=== PATIENT | male | born 1985 | race Caucasian/White ===

== ENCOUNTER 2019-11-06 10:48 | Emergency (ER) | payer OTHER, SELFPAY ==
[2019-11-06 11:09] VITALS: BP 119/75; PULSE 83; RESP 20; TEMP 36.9; O2SAT 98
--- NOTE | 2019-11-06 11:24 | ECG_ITS ---
Measurements Intervals Reyno Rate: 72 P: 43 MS: 160 QRS: 60 QRSD: 101 T: 42 QT: 343 QTc: 376 Interpretive Statements SINUS RHYTHM INCOMPLETE RIGHT BUNDLE BRANCH BLOCK CONSIDER TYPE 3 BRUGADA PATTERN ABNORMAL ECG Electronically Signed On 11-06-2019 11:40:26 TEA TASTER by Johnnie Huang D.O.
--- NOTE | 2019-11-06 11:40 | ED.GENADULT ---
HPI - General Adult General Chief complaint: Chest Pain Stated complaint: tightness in chest Time Seen by Provider: 11/06/19 11:40 Source: patient and RN notes reviewed Mode of arrival: ambulatory Limitations: no limitations History of Present Illness HPI narrative: 34-year-old male presents with complaints of chronic intermittent chest pain (intermittent pressure), palpitation, RT rib pain, lightheadedness, dizziness, and a syncopal episode this time for 4 days. Currently symptom free. No treatment. Justo says he has been having intermittent chest pain (intermittent pressure) and RT rib pain for years, since he was 18 years old. Symptoms increasing over the past year. Has been evaluated on numerous occasions at local ED for similar symptoms, evaluation included blood work, EKG, CXR, holter Monitor (negative, had to wear it twice, initial results not clear per Justo, repeated per his MD at the time.), stress test (negative per patient), last approximately 4-5 years ago. Exacerbating factors is smoke exposure (smokes 0.5PPD), laying down and tossing from side to side, and prolong standing increases and intensify the pain. Justo denies family history of sudden . Denies routine medications and drug usage, uses alcohol beverages every other weekend. Says maternal and paternal uncles has cardiac history, one paternal uncle of a AL at age 43. Justo says he had a unwitnessed syncopal episode on 11/02/2019 (he remembers going out and coming to while a show he was watching on television had went off). Denies dyspnea, diaphoresis, fever, or chills. Complains of intermittent nausea without vomiting, diarrhea, or abdominal pain. Denies leg cramping, leg swelling, long car rides, history of DVT, PE, or LE edema. Remains active and tolerating po intake well. Some parts of this dictation were generated by voice recognition software and may contain typographical and/or grammatical inaccuracies. Related Data Home Medications Medication Instructions Recorded Confirmed No Home Medications 11/06/19 11/06/19 Allergies Allergy/AdvReac Type Severity Reaction Status Date / Time No Known Allergies Allergy Verified 11/06/19 11:35 Review of Systems Review of Systems: Narrative: CONSTITUTIONAL: Denies fever, chills, sweats. EYES: Denies visual changes, redness, discharge. ENT: Denies rhinorrhea, congestion, sore throat, otalgia. CARDIOVASCULAR: Complains of intermittent chest pain. Denies palpitations, edema. RESPIRATORY: Denies dyspnea, wheezing, cough. GASTROINTESTINAL: Denies abdominal pain, vomiting, diarrhea. Complains of nausea. GENITOURINARY: Denies dysuria, hematuria, abnormal discharge. SKIN: Denies rash or itching. MUSCULOSKELETAL: Denies acute back pain or myalgia. Complains of intermittent RT anterior rib pain. NEUROLOGIC: Denies numbness or focal weakness. Complains of intermittent syncopal episodes, dizziness, lightheadedness. PSYCHIATRIC: Denies anxiety or depression. All systems reviewed & are unremarkable except as noted in HPI and below PMFSH Past Medical History Medical History (Updated 11/08/19 @ 00:05 by JULIANE Lawton) Chest pain Near syncope Surgical History Surgical History (Updated 11/08/19 @ 00:04 by JULIANE Lawton) History of tonsillectomy Social History Social History (Updated 11/08/19 @ 00:06 by JULIANE Lawton) Smoking status: Current every day smoker Comments At time of signature, agree with nurse past medical, surgical, social, and family history. There is no relevant family history pertinent to the presenting complaint. Exam Narrative: Exam Narrative: GENERAL: This is a well-nourished, well-developed patient, in no apparent distress. Talks in full sentences without deficits and ambulates with steady gait without dyspnea. HEAD: normocephalic, atraumatic. EYES: PERRL. Sclera clear/white. Vision is grossly intact. NOSE: External nose normal
[2019-11-06 12:24] VITALS: BP 118/76; PULSE 65
[2019-11-06 12:25] VITALS: BP 111/79; BP 114/76; PULSE 81; PULSE 90
[2019-11-06 12:37] LABS: Glucose Point of Care 103 (65-105)
== END 2019-11-06 13:02 | disposition home or self-care (01) ==
PROVIDERS: Emergency Provider Nurse Practitioner Family
DX: R07.89 Other chest pain (principal); R55 Syncope and collapse; F17.200 Nicotine dependence, unspecified, uncomplicated; I45.10 Unspecified right bundle-branch block; R94.31 Abnormal electrocardiogram [ECG] [EKG]
CPT/HCPCS: 82948; 93005; 99213; G0463

== ENCOUNTER 2020-10-14 11:15 | Emergency (ER) | payer BC, SELFPAY ==
--- NOTE | 2020-10-14 11:20 | ED.BACK ---
HPI - Back Pain/Injury General Chief Complaint: Back Pain/Injury Stated Complaint: back pain Time Seen by Provider: 10/14/20 12:02 Source: patient and RN notes reviewed Mode of arrival: ambulatory Limitations: no limitations History of Present Illness HPI Narrative: 45-year-old male presents concern for right mid back pain. Reports 5-day history of back pain, denies any injury, trauma, fall. 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 Reports exacerbating factors are bending, twisting, getting out of bed, reports relieving factors are not moving. He denies any intervention. He denies loss of bowel or bladder function, abdominal pain, fever, weakness in any extremity, perianal anesthesia. MD elicited complaint: back pain Related Data Allergies Allergy/AdvReac Type Severity Reaction Status Date / Time No Known Allergies Allergy Verified 11/06/19 11:35 Review of Systems Review of Systems: Narrative: CONSTITUTIONAL: Denies malaise, chills, sweats, or fever. CARDIOVASCULAR: Denies chest pain, palpitations, or edema. RESPIRATORY: Denies cough or dyspnea. GASTROINTESTINAL: Denies abdominal pain, nausea, vomiting, diarrhea, bloody, or mucous stools. GENITOURINARY: Denies dysuria or hematuria. SKIN: Denies bruising, redness MUSCULOSKELETAL: Reports mid right back pain. Denies joint pain, or myalgia. NEUROLOGIC: Denies numbness, weakness, or headache. All systems reviewed & are unremarkable except as noted in HPI and below PMFSH Past Medical History Medical History (Updated 10/14/20 @ 12:08 by Shanell Ansari NP) Chest pain Near syncope Surgical History Surgical History (Updated 11/08/19 @ 00:04 by JULIANE Lawton) History of tonsillectomy Social History Social History (Updated 11/08/19 @ 00:06 by JULIANE Lawton) Smoking status: Current every day smoker Comments At time of signature, agree with nursing past medical, surgical, social and family history. There is no relevant family history pertinent to the presenting complaint Exam Narrative: Exam Narrative: GENERAL: Well-appearing, well-nourished, and in no acute distress. HEAD: Normocephalic, atraumatic. EYES: PERRLA and EOMI. NECK: Supple. No lymphadenopathy. CHEST: Clear to auscultation. No respiratory distress. HEART: Regular rate and rhythm. Distal pulses palpable and equal, cap refill <3 seconds ABDOMEN: Soft, nontender, nondistended, normal active bowel sounds, no palpable or pulsatile masses. No CVA tenderness MUSCULOSKELETAL: Normal range of motion and strength in all extremities; 5/5 strength with hip flexion and extension, dorsiflexion and extension, knee flexion and extension, plantar flexion and extension. Normal sensation in dermatomal distributions with sensitivity to light touch and pain. No midline back tenderness to palpation. No paraspinal tenderness. Transfers from lying to sitting to standing. SKIN: Warm, dry, no rash. No ecchymosis, erythema, open wounds to back. NEURO: No focal deficits. Alert and oriented x3. Reflexes intact. Normal gait. PSYCH: Normal mood and affect Course Course Emergency Course: Patient is aware of diagnosis, understands and agrees to treatment plan. Anticipatory guidance given. Patient agrees to follow-up as directed and is aware of reasons to seek care at the emergency department. Portions of this record may have been created with voice recognition software Vital Signs Vital signs: Vital Signs Temperature 99.3 F 10/14/20 11:25 Pulse Rate 96 10/14/20 11:25 Respiratory Rate 18 10/14/20 11:25 Blood Pressure 142/84 H 10/14/20 11:25 Pulse Oximetry 97 10/14/20 11:25 Temperature 99.3 F 10/14/20 11:25 Pulse Rate 96 10/14/20 11:25 Respiratory Rate 18 10/14/20 11:25 Blood Pressure 142/84 H 10/14/20 11:25 Pulse Oximetry 97 10/14/20 11:25 Reviewed. MDM - Back Pain/Injury MDM Narrative Medical decision making narrative: No risk factors or findings concerning
[2020-10-14 11:25] VITALS: BP 142/84; PULSE 96; RESP 18; TEMP 37.4; O2SAT 97
== END 2020-10-14 12:14 | disposition home or self-care (01) ==
PROVIDERS: Emergency Provider Nurse Practitioner
DX: M54.6 Pain in thoracic spine (principal)
CPT/HCPCS: 99213; G0463

== ENCOUNTER 2021-05-15 10:19 | Emergency (ER) | payer OTHER, BC, SELFPAY ==
[2021-05-15 10:29] VITALS: BP 124/77; PULSE 93; RESP 18; TEMP 37.1; O2SAT 98
--- NOTE | 2021-05-15 10:54 | ED.GENADULT ---
HPI - General Adult General Chief complaint: Head Injury Stated complaint: head injury Time Seen by Provider: 05/15/21 10:41 Source: patient and RN notes reviewed Mode of arrival: ambulatory Limitations: no limitations History of Present Illness HPI narrative: 35-year-old male presents with complaints of intermittent dizziness, blurred vision, and headaches (not the worst of his life) after hitting head on a steel beam at work for the past 3 days. Justo reports hitting LT side of head on a steel beam Wednesday05/12/2021 and on Wednesday05/13/2021 he started having intermittent dizziness, blurred vision, and headaches, he called off work today and they instructed him to seek medical care. Justo reports he lifted up hitting head on the beam. ?No treatment. ?No loss of consciousness, double vision, or seizure activity. ?Denies nausea and vomiting. ?Tolerating po intake well. ?Denies immobility. Denies pain, numbness or tingling, or weakness of upper or lower extremities. ?No foreign body sensation. ?Exacerbation consists of light going from dark areas into lighted areas. ?Tetanus not up-to-date, last one unknown. ?Remains active. ?Currently does not have a TAVARES per Justo. The patient reports he has not been diagnosed with COVID-19. The patient reports he received 1 Moderna COVID-19 vaccine, and in the process of waiting on the next one. ?The patient reports he is not waiting for the results of a COVID-19 lab test. ?The patient reports he does not have weakness, fatigue, or myalgia. ?The patient reports he does not have a new or worsening cough or shortness of breath. ?The patient reports he does not have any rhinorrhea, congestion, loss of taste or smell, sore throat, and diarrhea. ?Denies recent traveling. ?Denies concerns for COVID-19 or exposures. ?At this time, the patient is not suspected of having COVID-19. Some parts of this dictation were generated by voice recognition software and may contain typographical and/or grammatical inaccuracies. Related Data Home Medications Medication Instructions Recorded Confirmed No Home Medications 05/15/21 05/15/21 Allergies Allergy/AdvReac Type Severity Reaction Status Date / Time No Known Allergies Allergy Verified 05/15/21 10:26 Review of Systems Review of Systems: CONSTITUTIONAL: Denies fever, chills, sweats. Complaints of hitting LT side of head on steel beam. EYES: Denies redness, discharge. Complains of intermittent blurred vision. ENT: Denies rhinorrhea, congestion, sore throat, otalgia. CARDIOVASCULAR: Denies chest pain, palpitations, edema. RESPIRATORY: Denies dyspnea, wheezing, cough. GASTROINTESTINAL: Denies abdominal pain, nausea, vomiting, diarrhea. SKIN: Complains of laceration to head (scalp). MUSCULOSKELETAL: Denies acute back pain, joint pain, or myalgia. NEUROLOGIC: Denies numbness or focal weakness. Complains of intermittent TAVARES, dizziness. PSYCHIATRIC: Denies anxiety or depression. All other systems reviewed & are unremarkable except as noted in HPI and below. [facility] Past Medical History Medical History Chest pain Near syncope Surgical History Surgical History History of tonsillectomy Family History Family History (Updated 05/15/21 @ 11:09 by JULIANE Lawton) Father Pancreatic cancer Mother Hypertension Diabetes mellitus Social History Social History (Updated 05/15/21 @ 11:10 by JULIANE Lawton) Smoking packs per day: 0.5 Smoking cigarettes per day: 10.0 Years smoked: 15 Smoking pack-years: 7.50 Smoking status: Current every day smoker Tobacco type: cigarettes Second hand tobacco smoke exposure: No Alcohol intake: current Substance use: never Substance use type: does not use Living arrangements: with family Occupation/Education: occupation Gender identity (if verbalized by the patient)
[2021-05-15] MEDS: TETANUS,DIPHTHERIA,AC PERTUSSIS ADULT (0.5 ML) BOOSTRIX IM (11:15)
== END 2021-05-15 11:30 | disposition home or self-care (01) ==
PROVIDERS: Emergency Provider Nurse Practitioner Family
DX: S06.0X0A Concussion without loss of consciousness, initial encounter (principal); W22.09XA Striking against other stationary object, initial encounter; Y99.0 Civilian activity done for income or pay; F17.210 Nicotine dependence, cigarettes, uncomplicated
CPT/HCPCS: 90471; 90715; 99212; 99213; G0463

== ENCOUNTER 2021-05-19 16:36 | Emergency (ER) | payer OTHER, BC, SELFPAY ==
[2021-05-19 16:58] VITALS: BP 128/74; PULSE 95; RESP 20; TEMP 36.8; O2SAT 99
[2021-05-19 19:07] VITALS: BP 125/75; PULSE 77; RESP 20; TEMP 36.3; O2SAT 99
--- NOTE | 2021-05-19 20:37 | ED.GENADULT ---
HPI - General Adult General Chief complaint: Headache <Ceasar Barnes PA-C - Last Filed: 05/19/21 20:40> Stated complaint: POST CONCUSSIVE S/SX <Ceasar Barnes PA-C - Last Filed: 05/19/21 20:40> Time Seen by Provider: 05/19/21 19:56 <Ceasar Barnes PA-C - Last Filed: 05/19/21 20:40> Source: patient and RN notes reviewed <Ceasar Barnes PA-C - Last Filed: 05/19/21 20:40> Mode of arrival: ambulatory <Ceasar Barnes PA-C - Last Filed: 05/19/21 20:40> Limitations: no limitations <Ceasar Barnes PA-C - Last Filed: 05/19/21 20:40> History of Present Illness HPI narrative: Patient is a 35-year-old male who presents for evaluation of head injury noting he walked into a metal beam a week ago did not lose consciousness has had mild headache since the incident patient went to urgent care on Wednesday was evaluated told he likely has a concussion notes that he still has some dizziness with his symptoms patient otherwise on arrival in no distress resting comfortably presents per private vehicle denies vomiting or other complaints has not followed up otherwise denies anticoagulant use <Ceasar Barnes PA-C - Last Filed: 05/19/21 20:40> Related Data Home medications: Home Medications Medication Instructions Recorded Confirmed No Home Medications 05/15/21 05/19/21 <Ceasar Barnes PA-C - Last Filed: 05/19/21 20:40> Allergies/adverse reactions: Allergies Allergy/AdvReac Type Severity Reaction Status Date / Time No Known Allergies Allergy Verified 05/19/21 20:04 <Ceasar Barnes PA-C - Last Filed: 05/19/21 20:40> Review of Systems Review of Systems: All systems reviewed & are unremarkable except as noted in HPI and below <Ceasar Barnes PA-C - Last Filed: 05/19/21 20:40> PMFSH Past Medical History Medical History: Medical History Chest pain Near syncope <DIMAS Pedraza Last Filed: 05/19/21 20:40> Surgical History Surgical History: Surgical History History of tonsillectomy <Ceasar Barnes PA-C - Last Filed: 05/19/21 20:40> Family History Family History: Family History (Updated 05/15/21 @ 11:09 by JULIANE Lawton) Father Pancreatic cancer Mother Hypertension Diabetes mellitus <Ceasar Barnes PA-C - Last Filed: 05/19/21 20:40> Social History Social History: Social History Smoking packs per day: 0.5 Smoking cigarettes per day: 10.0 Years smoked: 15 Smoking pack-years: 7.50 Smoking status: Current every day smoker Tobacco type: cigarettes Second hand tobacco smoke exposure: No Alcohol intake: current Substance use: never Substance use type: does not use Gender identity (if verbalized by the patient): Male <Ceasar Barnes PA-C - Last Filed: 05/19/21 20:40> Exam Narrative: GENERAL: Well-appearing, well-nourished, and in no acute distress. HEAD: Normocephalic, atraumatic. EYES: PERRLA and EOMI. ENT: Nares clear, no rhinorrhea or epistaxis. Mucous membranes moist. NECK: Supple. No adenopathy or masses. CHEST: Clear to auscultation. No respiratory distress. No wheezes rales or rhonchi HEART: Regular rate and rhythm. No murmur heard. EXTREMITIES: Normal range of motion. No edema. No cervical spine tenderness to palpation SKIN: Warm, dry, no rash. NEURO: No focal deficits. Alert and oriented x3. Cranial nerves II through XII grossly intact. Normal speech and gait PSYCH: Normal mood and affect. <Ceasar Barnes PA-C - Last Filed: 05/19/21 20:40> Course Course Emergency Course: Patient symptoms most consistent with concussion syndrome in the room no distress felt appropriate for outpatient reevaluation agreeing to follow-up as instructed felt appropriate for outpatient reev
== END 2021-05-19 20:52 | disposition home or self-care (01) ==
PROVIDERS: Emergency Provider Emergency Medicine
DX: S09.90XA Unspecified injury of head, initial encounter (principal); F17.210 Nicotine dependence, cigarettes, uncomplicated; W22.09XA Striking against other stationary object, initial encounter
CPT/HCPCS: 99283

== ENCOUNTER 2021-06-02 11:52 | Emergency (ER) | payer OTHER, BC, SELFPAY ==
[2021-06-02 12:37] VITALS: BP 121/80; PULSE 78; RESP 18; TEMP 36.8; O2SAT 98
--- NOTE | 2021-06-02 12:42 | ED.HEATRA ---
HPI - Head Injury General Chief complaint: Head Injury Stated complaint: Head Injury Time Seen by Provider: 06/02/21 12:42 Source: patient Mode of arrival: ambulatory Limitations: no limitations History of Present Illness HPI Narrative: Justo Ortiz is a 35-year-old male who hit his head on being back on May 15 and was seen recently here by another [employer] and was told that he had a closed head injury, concussion and if he started having's additional symptoms to go to the emergency room so they could image him. He was in the emergency room 4 days later and was released with a recommendation to follow-up with his PCP he apparently has had difficulty working since then and and when he goes to work he has been sent home he is to go through Workmen's Compensation and they sent him back to us for reevaluation of other looking for for someone to see him. Related Data Home Medications Medication Instructions Recorded Confirmed No Home Medications 05/15/21 05/19/21 Allergies Allergy/AdvReac Type Severity Reaction Status Date / Time No Known Allergies Allergy Verified 06/02/21 12:54 Review of Systems Review of Systems: CONSTITUTIONAL: Denies fever, chills, sweats. EYES: Denies visual changes, redness, discharge. ENT: Denies rhinorrhea, congestion, sore throat, otalgia. CARDIOVASCULAR: Denies chest pain, palpitations, edema. RESPIRATORY: Denies dyspnea, wheezing, cough GASTROINTESTINAL: Denies abdominal pain, nausea, vomiting, diarrhea. GENITOURINARY: Denies dysuria, hematuria, abnormal discharge SKIN: Denies rash or itching. NEUROLOGIC: Denies numbness, or focal weakness. PSYCHIATRIC: Denies anxiety or depression. Closed head injury who continues to have headache and occasional photophobia PMFSH Past Medical History Medical History Chest pain Near syncope Surgical History Surgical History History of tonsillectomy Family History Family History Father Pancreatic cancer Mother Hypertension Diabetes mellitus Social History Social History Smoking packs per day: 0.5 Smoking cigarettes per day: 10.0 Years smoked: 15 Smoking pack-years: 7.50 Smoking status: Current every day smoker Tobacco type: cigarettes Second hand tobacco smoke exposure: No Alcohol intake: current Substance use: never Substance use type: does not use Gender identity (if verbalized by the patient): Male Sexual Orientation (if Verbalized by the Patient): Straight or Heterosexual Comments At time of signature, I agree with nursing past medical, surgical, social and family history. There is no relevant family history pertinent to the presenting complaint. Exam Narrative: GENERAL: This is a well-nourished, well-developed patient, in mild distress. States he has continued symptoms from head injury including headache and photophobia HEAD: normocephalic, atraumatic. EYES: PERRL. Sclera clear/white. Vision is grossly intact. EARS: External ears normal, Hearing grossly intact. NOSE: External nose normal without nasal discharge, nares without redness, no rhinorrhea. THROAT: Mucous membranes moist, NECK: Neck supple, non-tender CARDIOVASCULAR: Regular rate and rhythm without murmurs, gallops, or rubs. RESPIRATORY: Clear to auscultation. Breath sounds equal bilaterally. No wheezes, rales, or rhonchi. GASTROINTESTINAL: Abdomen soft, non-tender, SKIN: warm, intact with no suspicious lesions or rash, good texture and turgor. NEURO: awake, alert, and oriented to person, place and time. There were no obvious focal neurologic abnormalities. No neuro deficit seen . Equal strength in all extremities, steady gait EXTREMITIES: Normal range of motion. BACK: Nontender without deformity Course Course Emergency Course
== END 2021-06-02 13:13 | disposition home or self-care (01) ==
PROVIDERS: Emergency Provider Nurse Practitioner
DX: S06.9X9D Unspecified intracranial injury with loss of consciousness of unspecified duration, subsequent encounter (principal); X58.XXXD Exposure to other specified factors, subsequent encounter
CPT/HCPCS: 99213; G0463